=== PATIENT | female | born 1955 | race Caucasian/White ===

== ENCOUNTER 2018-08-27 06:30 | Day surgery (SDC) | payer OTHER ==
[2018-08-27] MEDS ORDERED: CEFAZOLIN 1 GM/50 ML (PMX) 50 ML IVPB (07:00)
[2018-08-27] MEDS ORDERED: METOCLOPRAMIDE 10 MG INJ (07:00)
[2018-08-27] MEDS ORDERED: DEXAMETHASONE 4 MG/ML 1 ML INJ (07:00)
[2018-08-27] MEDS ORDERED: MIDAZOLAM 1 MG/ML 2 ML INJ (07:07)
[2018-08-27] MEDS ORDERED: FENTAnyl 50 MCG/ML VIAL (07:07)
[2018-08-27] MEDS ORDERED: PROPOFOL 20 ML (07:08)
[2018-08-27] MEDS ORDERED: LIDOCAINE 2% (SDV) 5 ML INJ (07:08)
[2018-08-27] MEDS ORDERED: ONDANSETRON 4 MG INJ (07:08)
[2018-08-27] MEDS ORDERED: CEFAZOLIN 1 GM INJ (07:08)
[2018-08-27] MEDS ORDERED: ROPIVACAINE 0.5 % 30 ML VIAL (07:16)
[2018-08-27] MEDS ORDERED: LIDOCAINE 1% (MPF) 10 ML INJ (07:16)
[2018-08-27] MEDS: LIDOCAINE 2% (MDV) 20 ML INJ (07:45)
[2018-08-27] MEDS: POLYMYXIN/BACITRACIN 1L IRRIG (07:49)
[2018-08-27] MEDS ORDERED: KETOROLAC 30 MG INJ IV (08:00)
[2018-08-27] MEDS ORDERED: FENTAnyl 50 MCG/ML VIAL IV ×2 (08:00)
[2018-08-27] MEDS ORDERED: MEPERIDINE 25 MG INJ IV (08:00)
[2018-08-27] MEDS ORDERED: LABETALOL HCL 20MG INJ IV (08:00)
[2018-08-27] MEDS ORDERED: HYDROmorphONE 1 MG/5 ML IV SYRINGE IV ×2 (08:00)
[2018-08-27] MEDS ORDERED: hydrALAzine 20 MG INJ IV (08:00)
[2018-08-27] MEDS ORDERED: IPRATROPIUM (NEB) 0.5 MG/2.5 ML AMP HHN (08:00)
[2018-08-27] MEDS ORDERED: DIPHENHYDRAMINE 50 MG INJ IV (08:00)
[2018-08-27] MEDS ORDERED: ONDANSETRON 4 MG INJ IV (08:00)
[2018-08-27] MEDS: DEXAMETHASONE 4 MG/ML 1 ML INJ (08:17)
[2018-08-27] MEDS: BUPIVACAINE 0.5% (SDV) 30 ML INJ (08:17)
== END 2018-08-27 11:43 | disposition home or self-care (01) ==
LOC: SDS 06:30
DX: M21.612 Bunion of left foot (principal); M20.42 Other hammer toe(s) (acquired), left foot; F20.9 Schizophrenia, unspecified
CPT/HCPCS: 28285; 88304; 88311